=== PATIENT | female | born 1995 | race Caucasian/White ===

== ENCOUNTER 2017-06-04 23:32 | Emergency (ER) | payer OTHER ==
[~2017-06-04] VITALS: Ht 162.6 cm; Wt 64.0 kg
[~2017-06-04 23:32] MED LIST: ALBMDI INH; BACL10TA PO; ESOM20CA PO; LORA10TA7 PO; OMEP20CA10 PO
[2017-06-04 23:40] VITALS: BP_SYST 130
[2017-06-05 00:59] VITALS: BP_SYST 130
== END 2017-06-05 00:59 | disposition home or self-care (01) ==
LOC: SED 23:32
DX: Z00.00 Encounter for general adult medical examination without abnormal findings (principal); R03.0 Elevated blood-pressure reading, without diagnosis of hypertension; R56.9 Unspecified convulsions; J45.909 Unspecified asthma, uncomplicated; Z88.1 Allergy status to other antibiotic agents; Z88.0 Allergy status to penicillin; Z79.899 Other long term (current) drug therapy
CPT/HCPCS: 99281

== ENCOUNTER 2021-03-11 04:25 | Observation (INO) | payer SELFPAY ==
[~2021-03-11 04:25] MED LIST changes: -OMEP20CA10 PO; +OMEP20CA15 PO; +TRAM50TA2 PO
== END 2021-03-11 06:15 | disposition home or self-care (01) ==
LOC: MERGE 04:25 → SPU 04:25
PROVIDERS: ADMIT Obstetrics & Gynecology; ATTEND Obstetrics & Gynecology
DX: O99.612 Diseases of the digestive system complicating pregnancy, second trimester (principal); K29.70 Gastritis, unspecified, without bleeding; O23.42 Unspecified infection of urinary tract in pregnancy, second trimester; Z3A.27 27 weeks gestation of pregnancy; Z88.0 Allergy status to penicillin
CPT/HCPCS: 81002; G0378; G0379